=== PATIENT | male | born 1980 | race Caucasian/White ===

== ENCOUNTER 2019-09-08 19:22 | Emergency (ER) | payer OTHER, SELFPAY ==
[2019-09-08 19:45] VITALS: BP 130/76; PULSE 77; RESP 20; TEMP 37.7; O2SAT 95
--- NOTE | 2019-09-08 19:53 | ED.GENADULT ---
HPI - General Adult General Chief complaint: Skin/Abscess/Foreign Body Stated complaint: rash on face and arm Time Seen by Provider: 09/08/19 19:53 Source: patient Mode of arrival: ambulatory Limitations: no limitations History of Present Illness HPI narrative: 39-year-old male patient presents to the [facility] with complaints of a rash to the face with that he noticed when he woke up this morning. 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 Patient states that it is itchy on the left side and seems to be spreading to the neck as well as the right arm. Patient denies any trouble breathing, chest pain, trouble swallowing or any swelling to the lips or tongue. Patient states he had an episode like this last year doing the exact same activity. Related Data Home Medications Medication Instructions Recorded Confirmed cetirizine [Zyrtec] 10 mg PO DAILY 09/08/19 09/08/19 Allergies Allergy/AdvReac Type Severity Reaction Status Date / Time Penicillins Allergy Unknown Unknown Verified 09/08/19 19:59 Review of Systems Review of Systems: Narrative: CONSTITUTIONAL: Denies fever, chills, or sweats. EYES: Denies visual changes, redness, or discharge. ENT: Denies rhinorrhea, congestion, sore throat, or otalgia. CARDIOVASCULAR: Denies chest pain, palpitations, or edema. RESPIRATORY: Denies cough or dyspnea. GASTROINTESTINAL: Denies abdominal pain, nausea, vomiting, or diarrhea. GENITOURINARY: Denies dysuria or hematuria. SKIN: Positive rash with itchiness to face and right arm. MUSCULOSKELETAL: Denies back pain, joint pain, or myalgia. NEUROLOGIC: Denies headache, numbness, or weakness. PSYCHIATRIC: Denies anxiety or depression. PMFSH Comments At the time of my signature I agree with nursing past medical history, surgical, social, and family history. There is no relevant family history pertinent to the presenting complaint. Exam Narrative: Exam Narrative: GENERAL: Well-appearing, well-nourished, and in no acute distress. HEAD: Normocephalic, atraumatic. EYES: PERRLA and EOMI. ENT: Nares clear, no rhinorrhea or epistaxis. Mucous membranes moist. NECK: Supple. No lymphadenopathy CHEST: Clear to auscultation. No respiratory distress. HEART: Regular rate and rhythm. No murmur heard. Normal peripheral pulses. ABDOMEN: Soft, nontender, nondistended, normal active bowel sounds. EXTREMITIES: Normal range of motion. No edema. SKIN: Patient has erythemic blotchy rash noted to areas of the left face that extends to the neck and bend over the right arm. No open wounds or discharge noted at this time. NEURO: No focal deficits. Alert and oriented x3. Course Vital Signs Vital signs: Vital Signs Temperature 37.7 C H 09/08/19 19:45 Pulse Rate 77 09/08/19 19:45 Respiratory Rate 09/08/19 19:45 Blood Pressure 130/76 09/08/19 19:45 Pulse Oximetry 95 09/08/19 19:45 Temperature 37.7 C H 09/08/19 19:45 Pulse Rate 77 09/08/19 19:45 Respiratory Rate 09/08/19 19:45 Blood Pressure 130/76 09/08/19 19:45 Pulse Oximetry 95 09/08/19 19:45 Vital signs reviewed. Medical Decision Making Differential Diagnosis Differential Diagnosis: Differential diagnosis: Contact dermatitis, poison rowan, poison sumac, psoriasis, eczema, allergic reaction, drug reaction, scabies, tinea syphilis, lung disease, viral exanthema, pityriasis, erythema multiforme. Discussed with patient that we will go ahead and discharge him home with an oral steroid to help with the poison rowan rash. Discussed with patient if it continues to spread dirty does not feel like the steroids are working he will need to follow-up with his primary doctor or go the ER for further evaluation and treatment. Patient verbalized understanding of this. Discussed patient if he develops chest pain or shortness of breath or swelling of the lips and tongue he needs to go the ER right away. Vital Signs Vital Signs: Vital Signs Temperature 37.7 C H
== END 2019-09-08 20:18 | disposition home or self-care (01) ==
PROVIDERS: Emergency Provider Nurse Practitioner Family; PCP Family Medicine
DX: L23.7 Allergic contact dermatitis due to plants, except food (principal)
CPT/HCPCS: 99203; G0463